=== PATIENT | male | born 1945 | race Caucasian/White ===

== ENCOUNTER 2020-06-22 14:00 | Outpatient (REF) | payer MEDICARE, OTHER, SELFPAY | END 2020-06-22 14:01 | disposition home or self-care (01) | LOC: HO.BBR 14:00 | PROVIDERS: PCP Internal Medicine; Visit Provider Internal Medicine Hematology | DX: Z13.89 Encounter for screening for other disorder (principal) ==

== ENCOUNTER 2020-06-29 14:08 | Outpatient (REF) | payer MEDICARE, OTHER, SELFPAY | END 2020-06-29 14:09 | disposition home or self-care (01) | LOC: HO.BBR 14:08 | PROVIDERS: PCP Internal Medicine; Visit Provider Internal Medicine Hematology | DX: Z13.89 Encounter for screening for other disorder (principal) ==

== ENCOUNTER 2020-07-13 13:02 | Outpatient (REF) | payer MEDICARE, OTHER, SELFPAY | END 2020-07-13 13:03 | disposition home or self-care (01) | LOC: HO.BBR 13:02 | PROVIDERS: Visit Provider Internal Medicine Hematology | DX: Z13.89 Encounter for screening for other disorder (principal) ==

== ENCOUNTER 2020-07-27 13:47 | Outpatient (REF) | payer MEDICARE, OTHER, SELFPAY | END 2020-07-27 13:48 | disposition home or self-care (01) | LOC: HO.BBR 13:47 | PROVIDERS: Visit Provider Internal Medicine Hematology | DX: Z13.89 Encounter for screening for other disorder (principal) ==

== ENCOUNTER 2020-08-10 13:34 | Outpatient (REF) | payer MEDICARE, OTHER, SELFPAY | END 2020-08-10 13:35 | disposition home or self-care (01) | LOC: HO.BBR 13:34 | PROVIDERS: Visit Provider Internal Medicine Hematology | DX: Z13.89 Encounter for screening for other disorder (principal) ==

== ENCOUNTER 2020-08-24 13:40 | Outpatient (REF) | payer MEDICARE, OTHER, SELFPAY | END 2020-08-24 13:41 | disposition home or self-care (01) | LOC: HO.BBR 13:40 | PROVIDERS: Visit Provider Internal Medicine Hematology | DX: Z13.89 Encounter for screening for other disorder (principal) ==

== ENCOUNTER 2020-09-07 13:44 | Outpatient (REF) | payer MEDICARE, OTHER, SELFPAY | END 2020-09-07 13:45 | disposition home or self-care (01) | LOC: HO.BBR 13:44 | PROVIDERS: PCP Internal Medicine; Visit Provider Internal Medicine Hematology | DX: Z13.89 Encounter for screening for other disorder (principal) ==

== ENCOUNTER 2020-09-23 13:43 | Outpatient (REF) | payer MEDICARE, OTHER, SELFPAY | END 2020-09-23 13:44 | disposition home or self-care (01) | LOC: HO.BBR 13:43 | PROVIDERS: Visit Provider Internal Medicine Hematology | DX: Z13.89 Encounter for screening for other disorder (principal) ==

== ENCOUNTER 2020-10-25 13:37 | Outpatient (REF) | payer MEDICARE, OTHER, SELFPAY | END 2020-10-25 13:38 | disposition home or self-care (01) | LOC: HO.BBR 13:37 | PROVIDERS: PCP Internal Medicine; Visit Provider Internal Medicine Hematology | DX: Z13.89 Encounter for screening for other disorder (principal) ==

== ENCOUNTER 2020-11-25 13:07 | Outpatient (REF) | payer MEDICARE, OTHER, SELFPAY | END 2020-11-25 13:08 | disposition home or self-care (01) | LOC: HO.BBR 13:07 | PROVIDERS: Visit Provider Internal Medicine Hematology | DX: Z13.89 Encounter for screening for other disorder (principal) ==

== ENCOUNTER 2020-12-17 12:09 | Outpatient (REF) | payer MEDICARE, OTHER, SELFPAY | END 2020-12-17 12:10 | disposition home or self-care (01) | LOC: HO.BBR 12:09 | PROVIDERS: Visit Provider Internal Medicine Hematology | DX: Z13.89 Encounter for screening for other disorder (principal) ==

== ENCOUNTER 2021-01-24 13:11 | Outpatient (REF) | payer MEDICARE, OTHER, SELFPAY | END 2021-01-24 13:12 | disposition home or self-care (01) | LOC: HO.BBR 13:11 | PROVIDERS: Visit Provider Internal Medicine Hematology | DX: Z13.89 Encounter for screening for other disorder (principal) ==

== ENCOUNTER 2021-02-28 13:04 | Outpatient (REF) | payer MEDICARE, OTHER, SELFPAY | END 2021-02-28 13:05 | disposition home or self-care (01) | LOC: HO.BBR 13:04 | PROVIDERS: Visit Provider Internal Medicine Hematology | DX: Z13.89 Encounter for screening for other disorder (principal) ==

== ENCOUNTER 2021-06-02 12:11 | Outpatient (REF) | payer MEDICARE, OTHER, SELFPAY | END 2021-06-02 12:12 | disposition home or self-care (01) | LOC: HO.BBR 12:11 | PROVIDERS: Visit Provider Internal Medicine Hematology | DX: Z13.89 Encounter for screening for other disorder (principal) ==

== ENCOUNTER → 2021-06-15 11:00 | Outpatient (BNVA) | payer MEDICARE, OTHER, SELFPAY | PROVIDERS: PCP Internal Medicine; Visit Provider Psychiatry & Neurology Neurology | DX: G43.709 Chronic migraine without aura, not intractable, without status migrainosus (principal); G24.3 Spasmodic torticollis; M54.2 Cervicalgia | CPT/HCPCS: 99202 ==

== ENCOUNTER → 2021-07-14 11:33 | Outpatient (BNVA) | payer MEDICARE, OTHER, SELFPAY | PROVIDERS: PCP Internal Medicine; Visit Provider Psychiatry & Neurology Neurology | DX: G43.709 Chronic migraine without aura, not intractable, without status migrainosus (principal); G24.3 Spasmodic torticollis; M54.2 Cervicalgia | CPT/HCPCS: 64616; 99211; J0585 ==

== ENCOUNTER 2021-08-30 11:09 | Outpatient (REF) | payer MEDICARE, OTHER, SELFPAY | END 2021-08-30 11:10 | disposition home or self-care (01) | LOC: HO.BBR 11:09 | PROVIDERS: Visit Provider Internal Medicine Hematology | DX: Z13.89 Encounter for screening for other disorder (principal) ==

== ENCOUNTER → 2021-11-24 10:59 | Outpatient (BNVA) | payer MEDICARE, OTHER, SELFPAY | PROVIDERS: PCP Internal Medicine; Visit Provider Psychiatry & Neurology Neurology | DX: G43.709 Chronic migraine without aura, not intractable, without status migrainosus (principal); G24.3 Spasmodic torticollis; M54.2 Cervicalgia | CPT/HCPCS: 99212 ==

== ENCOUNTER 2021-11-30 12:12 | Outpatient (REF) | payer MEDICARE, OTHER, SELFPAY | END 2021-11-30 12:13 | disposition home or self-care (01) | LOC: HO.BBR 12:12 | PROVIDERS: Visit Provider Internal Medicine Hematology | DX: Z13.89 Encounter for screening for other disorder (principal) ==

== ENCOUNTER → 2022-02-10 11:25 | Outpatient (BNVA) | payer MEDICARE, OTHER, SELFPAY | PROVIDERS: PCP Internal Medicine; Visit Provider Psychiatry & Neurology Neurology | DX: G43.709 Chronic migraine without aura, not intractable, without status migrainosus (principal); G24.3 Spasmodic torticollis; M54.2 Cervicalgia | CPT/HCPCS: Q3014 ==

== ENCOUNTER 2022-03-02 10:56 | Outpatient (REF) | payer MEDICARE, OTHER, SELFPAY | END 2022-03-02 10:57 | disposition home or self-care (01) | LOC: HO.BBR 10:56 | PROVIDERS: PCP Internal Medicine; Visit Provider Internal Medicine Hematology | DX: Z13.89 Encounter for screening for other disorder (principal) ==

== ENCOUNTER → 2022-05-24 15:27 | Outpatient (BNVA) | payer MEDICARE, OTHER, SELFPAY | PROVIDERS: PCP Internal Medicine; Visit Provider Nurse Practitioner Family | DX: M54.2 Cervicalgia (principal); G24.3 Spasmodic torticollis; G43.709 Chronic migraine without aura, not intractable, without status migrainosus | CPT/HCPCS: 99212 ==

== ENCOUNTER 2022-06-30 12:56 | Outpatient (REF) | payer MEDICARE, OTHER, SELFPAY | END 2022-06-30 12:57 | disposition home or self-care (01) | LOC: HO.BBR 12:56 | PROVIDERS: Visit Provider Internal Medicine Hematology | DX: Z13.89 Encounter for screening for other disorder (principal) ==

== ENCOUNTER → 2022-08-30 11:27 | Outpatient (BNVA) | payer MEDICARE, OTHER, SELFPAY | PROVIDERS: PCP Internal Medicine; Visit Provider Nurse Practitioner Family | DX: G43.709 Chronic migraine without aura, not intractable, without status migrainosus (principal); G24.3 Spasmodic torticollis; M54.2 Cervicalgia | CPT/HCPCS: 99212 ==

== ENCOUNTER 2022-11-06 11:17 | Outpatient (REF) | payer MEDICARE, OTHER, SELFPAY | END 2022-11-06 11:18 | disposition home or self-care (01) | LOC: HO.BBR 11:17 | PROVIDERS: PCP Internal Medicine; Visit Provider Internal Medicine Hematology | DX: Z13.89 Encounter for screening for other disorder (principal) ==

== ENCOUNTER 2023-04-26 15:06 | Outpatient (AMB) | payer MEDICARE, OTHER, SELFPAY ==
--- NOTE | 2023-04-26 15:07 | A.OFFVIS_ITS ---
Intake Intake Visit Reasons: 3m follow up Headache-Confirmed Intake Note: patient following up for headaches. patients headaches are worst getting 2 a day Allergies ciprofloxacin [From Cipro] Allergy (Verified 04/26/23 15:08) Rash Sulfa (Sulfonamide Antibiotics) Allergy (Verified 04/26/23 15:08) Unknown Medication List - Last Reconciled 04/26/23 by Lianne Roberts, [facility] RESIDENT alfuzosin ER 10 mg PO DAILY alprazolam 0.25 mg PO BID PRN ascorbic acid (vitamin C) ER 500 mg PO DAILY atogepant 60 mg PO DAILY 30 days baclofen 1-2 tabs orally bedtime; calcium carbonate-vitamin D3 600 mg-10 mcg (400 unit) caps PO QID coenzyme Q10 (CoQ-10) 200 mg PO DAILY gabapentin 100 - 300 mg (1 - 3 x 100 mg) PO BEDTIME 30 days glutathione 10 mg PO meloxicam 7.5 mg PO DAILY methylcellulose (with sugar) (Citrucel (sucrose) oral powder) 1 tbsp PO DAILY omeprazole 40 mg PO DAILY 30 days oxycodone 5 mg PO BEDTIME PRN prednisone 6 tabs x's 3 days, 5 tabs x's 2 days, then 4 tabs x's 2 days, 3 tabs x's 2 tabs, 2 tabs x's 2 days, 1 tab x's 2 days then stop orally daily; rivaroxaban (Xarelto) 10 mg PO DAILY simvastatin 10 mg PO BEDTIME sumatriptan succinate 1 tab at onset of headache and may repeat in 2 hrs orally ; PRN; 30 days MDD 2 tabs verapamil ER 200 mg PO DAILY whey grams PO zinc 50 mg PO DAILY HPI HPI Comments History of Present Illness Details 78-yr-old male presents for f/u telephon e visit. Pt denies any significant interval medical changes. Pt has been having increased migraine intensity and frequency. Now having a daily migraine, needing to take Sumatripatn 1-2 x's per day. Feels a good day is where he only needs to take 1 Sumatriptan a day. Sometimes uses Baclofen at bedtime- does not think it helps much. Pt stopped Qulipta 60mg- did not feel it was helping fully. Tried Nerivio- Did not find much benefit from acute or preventive tx. Tried a Ubrelvy sample he had on hand- this did help, as he did not wake up in the morning w/ the headache.. [facility] Medical History Arthritis Back pain Chronic migraine without aura Hyperlipidemia Osteoporosis Sleep disorder Surgical History Hx of shoulder surgery History of bowel resection Hx of splenectomy Hx of knee surgery Family History Father Cancer Mother Cancer Son Migraine Daughter Migraine Sister Pancreatic cancer Social History Household Members: Spouse Alcohol intake: former Patient Tobacco Use Status: Never used Tobacco Current occupational status: retired Physical Exam Const General: cooperative and no acute distress Orientation/consciousness: patient oriented x3 Resp Effort & Inspection: normal respiratory effort and able to speak in complete sentences Neuro General: patient oriented x3 Cognition (Neuro): normal cognition Psych Mental Status: mental status grossly normal Speech and movement: Clear speech present Attitude: cooperative Assessment & Plan Assessment & Plan (1) Chronic migraine without aura: Code(s): G43.709 - Chronic migraine without aura, not intractable, without status migrainosus (2) Spasmodic torticollis: Code(s): G24.3 - Spasmodic torticollis (3) Cervicalgia: Code(s): M54.2 - Cervicalgia Plan For migraine prevention: Start riboflavin 400 mg q.a.m. Start magnesium 400 mg q.h.s. Start Vyepti 100mg IV q 3 months. Continue Verapamil Er 200mg qd. Patient has stopped Atogepant 60mg qhs. Continue PT exercises. Previous preventive medication trials: Emgality, atogepant 60 mg, topiramate, depakote, gabapentin, magnesium, amitriptyline , nortriptyline, nurtec , Aimovig, and botox?for prohylaxis- all ineffective For acute medication treatment: Trial Ubrelvy 100 mg as needed at onset of headache, may repeat in 2 hours Continue Sumatriptan prn- losing effectiveness. Previous acute treatment trials: Naratriptan- not full effect. Nerivio- ineffective Future considerations- In-lab PSG to assess for sleep apnea and PLMS. f/u in 4 months or sooner prn. Medications: New ubrogepant (Ubrelvy) take at onset of migraine, may repeat in 2hrs 50 - 100 mg (0.5 - 1 x 100 mg) PO ONCE PRN 16 tabs 3RF migraine headache 30 days eptinezumab-jjmr (Vyepti) administer over 30 mins 100 mg IV [id number] 1 day riboflavin (vitamin B2) 400 mg PO DAILY 30 tabs 6RF 30 days magnesium oxide may hold for loose stools 400 mg PO BEDTIME 30 tabs 6RF 30 days Discontinued atogepant Discontinued Reason: Doctor's Order 60 mg PO DAILY 30 days 30 tabs 6RF Telehealth Telehealth Location of provider rendering services: practice address Location of patient: address on file Patient Identification confirmed using: Name, : Yes Telehealth method: video Patient verbally consented to treatment: Yes Patient verbally consented to billing insurance company: Yes Patient informed of any privacy concerns related to visit: Yes Minutes spent on Phone/Video with Pt.: 25 Coding Level of Care Code Tele Est Pt Level 4 (67446) Diagnoses Chronic migraine without aura G43.709 Spasmodic torticollis G24.3 Cervicalgia M54.2
== END 2023-04-26 17:00 | disposition home or self-care (01) ==
LOC: HO.HSMS 15:07
PROVIDERS: PCP Internal Medicine; Visit Provider Nurse Practitioner Family
DX: G43.709 Chronic migraine without aura, not intractable, without status migrainosus (principal); G24.3 Spasmodic torticollis; M54.2 Cervicalgia
CPT/HCPCS: 99214

== ENCOUNTER → 2023-04-26 15:06 | Outpatient (BNVA) | payer MEDICARE, OTHER, SELFPAY | PROVIDERS: PCP Internal Medicine; Visit Provider Nurse Practitioner Family | DX: M54.2 Cervicalgia (principal); G24.3 Spasmodic torticollis; G43.709 Chronic migraine without aura, not intractable, without status migrainosus ==

== ENCOUNTER 2023-07-31 11:08 | Outpatient (AMB) | payer MEDICARE, OTHER, SELFPAY ==
--- NOTE | 2023-07-31 11:12 | A.OFFVIS_ITS ---
Vital Signs 07/31/23 11:14 Height 5 ft 6 in Weight 168 lb 8 oz BMI 27.2 BP 112/74 Blood Pressure Location Rt brachial Position Sitting Pulse 68 Pulse Source Pulse Oximeter Pulse Oximetry (%) 96 Oxygen Delivery Method Room Air Intake Visit Reasons: Follow up Headache-CONF Intake Note: Patient presents for follow up for headache. Patient concerns of continued migraines also wants results from his t scan done 10 day ago. Allergies nitrofurantoin [From Macrobid] Allergy (Mild, Verified 07/31/23 11:21) Nausea ciprofloxacin [From Cipro] Allergy (Verified 07/31/23 11:20) Rash Sulfa (Sulfonamide Antibiotics) Allergy (Verified 07/31/23 11:20) Unknown Medication List - Last Reconciled 08/04/23 by MICHAEL Fernandez alfuzosin ER 10 mg PO DAILY alprazolam 0.25 mg PO BID PRN ascorbic acid (vitamin C) ER 500 mg PO DAILY baclofen 1-2 tabs orally bedtime; calcium carbonate-vitamin D3 600 mg-10 mcg (400 unit) caps PO QID coenzyme Q10 (CoQ-10) 200 mg PO DAILY eptinezumab-jjmr (Vyepti) 100 mg IV [id number] 1 day gabapentin 100 - 300 mg (1 - 3 x 100 mg) PO BEDTIME 30 days glutathione 10 mg PO magnesium oxide 400 mg PO BEDTIME 30 days meloxicam 7.5 mg PO DAILY methylcellulose (with sugar) (Citrucel (sucrose) oral powder) 1 tbsp PO DAILY omeprazole 40 mg PO DAILY 30 days oxycodone 5 mg PO BEDTIME PRN prednisone 6 tabs x's 3 days, 5 tabs x's 2 days, then 4 tabs x's 2 days, 3 tabs x's 2 tabs, 2 tabs x's 2 days, 1 tab x's 2 days then stop orally daily; riboflavin (vitamin B2) 400 mg PO DAILY 30 days rivaroxaban (Xarelto) 5 mg PO DAILY simvastatin 10 mg PO BEDTIME sumatriptan succinate 1 tab at onset of headache and may repeat in 2 hrs orally ; PRN; 30 days MDD 2 tabs ubrogepant (Ubrelvy) 50 - 100 mg (0.5 - 1 x 100 mg) PO ONCE PRN 30 days verapamil ER 200 mg PO DAILY whey grams PO zinc 50 mg PO DAILY HPI Comments Details: 78-yr-old male presents for f/u visit, accompanied by his . Since the last visit, pt has been having increasing right sided temporal steady intense stabbing headache- makes him stop and lay down. This headache is always triggered by bending over and getting back up. This subsides if he lays down for 5 minute, but once lasted 45 minutes. These started 8-10 yrs ago, but recently are more frequent. This is entirely different than his usual left sided migraine attacks. Thus, we advised pt to have Brain MRI w/wo which showed no acute findings, with mild progression of nonspeciifc mild T2/FLAIR hyperintense foci in the white matter, likely chronic small vessel disease. Head/NCTA showed Bilateral intracranial ICAs demonstrate atherosclerotic calcification w/o stenosis. No acute intracranial large vessel occlusion or high-grade intracranial stenosis. No hemodynamically-significant stenoses of the extracranial internal carotid and vertebral arteries. However, there is mild beading of the V3 segment of the left vertebral artery, which may be due to fibromuscular dysplasia. Chronic left cerebellar infarct. Pt denies known h/o stroke or TIA. Once had an atypical episode of AMS but states had no residual s/s. He has been on Verapamil ER for at least 15 yrs for migraine prevention- initially on 240mg TID, and then reduced to 200mg ER qd. He is not sure if this dose change impacted severity of stabbing headache. His BP is normotensive. Last lipids were WNL. 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 More recently using Sumatriptan 1/2 tab bid for acute/prevention of typical left sided migraine. The Vyepti order has been apporved but is still being processed by speciality pharmacy and infusion clinic. Pt does reports bouts of RLE sciatica. He has done PT, which has helped, but s/s did return. F/B PS&S. He has an upcoming neurosurgery consult w/ Dr Ryder. [facility] Medical History (Updated 08/04/23 @ 14:44 by MICHAEL Fernandez) Prothrombin gene mutation Chronic migraine without aura Back pain Arthritis Sleep disorder Osteoporosis Hyperlipidemia Surgical History Hx of shoulder surgery History of bowel resection Hx of splenectomy Hx of knee surgery Family History Father Cancer Mother Cancer Son Migraine Daughter Migraine Sister Pancreatic cancer Social History Household Members: Spouse Alcohol intake: former Patient Tobacco Use Status: Never used Tobacco Current occupational status: retired Physical Exam Vital Signs: Last Vital Signs Pulse 68 07/31/23 11:14 BP 112/74 07/31/23 11:14 Pulse Ox 96 07/31/23 11:14 Oxygen Delivery Method Room Air 07/31/23 11:14 BMI result Body Mass Index 27.2 Const General: cooperative and no acute distress Orientation/consciousness: patient oriented x3 Resp Effort & Inspection: normal respiratory effort and able to speak in complete sentences Neuro General: patient oriented x3 Cranial nerves: Yes CN's II-XII intact bilaterally Cognition (Neuro): normal cognition Psych Appearance: grossly normal Mental Status: mental status grossly normal Speech and movement: Normal speech and movement present Affect: normal affect Attitude: cooperative Results Reviewed Results Reviewed: 08/22/22 15:58 Cholesterol 147 Triglycerides 95 HDL Cholesterol 55 LDL Cholesterol 73 Non HDL Cholesterol 92 07/02/2023, MRI Brain W+W/O Contrast MRI Brain W+W/O Contrast INDICATION / CLINICAL QUESTION: Reason: R51.9 D68.52 E78.5 G43.709 HEADACHE UNSP. PROTHROMBIN GENE MUTATION HYPERLIPIDEMIA UNSP. CHRONIC MIGRAINE W O AURA NOT INTRACTABLE W O STATUS; Clinical Question(s): Other: Other: TECHNIQUE: MRI of the brain was performed with and without c ontrast utilizing sagittal and axial T1, axial T2, axial FLAIR, axial MPGR, and axial DWI sequences, and post-contrast 3D T1 ELLIOTT with multiplanar reformats. 15 mL of Clariscan was administered intravenously. COMPARISON: MRI of 04/27/2020 FINDINGS: BRAIN and EXTRA-AXIAL SPACES: The midline structures, including sella, corpus callosum, and craniocervical junction, are unremarkable. There is no mass effect, midline shift, or effacement of the basal cisterns. On diffusion weighted imaging, there are no regions of restricted diffusion to indicate an acute or subacute infarct. There is no evidence of intracranial hemorrhage on susceptibility sensitive sequence. Mild scattered foci of T2 prolongation are seen in the white matter, mildly progressed since the prior examination. Ventricles, cisterns, and sulci are normal in size and configuration, without hydrocephalus. No abnormal extra-axial fluid collections are seen. Meningeal surfaces are normal. No abnormal intracranial enhancement is seen. Major intracranial flow voids are present. EXTRACRANIAL SOFT TISSUES: Orbits are unremarkable. Mucous retention cysts or polyps are noted in the left maxillary sinus, improved since the prior examination. The previously seen concentric mucosal thickening of the right maxillary sinusitis resolved.. Otherwise the paranasal sinuses are mastoid air cells are clear. BONES: Marrow signal is pres erved. IMPRESSION: 1. No acute/subacute infarct, mass, hemorrhage, abnormal enhancement, or other acute intracranial abnormality. 2. Mildly progressed mild T2/FLAIR hyperintense foci in the white matter, nonspecific but most likely reflecting chronic small vessel disease. 07/19/2023, CT Angio Head, CT Angio Neck COMPARISON: MRI of the brain 07/02/2023 FINDINGS: CTA OF THE NECK: Arch: There is a four vessel aortic arch, with direct origin of the left vertebral artery from the aorta. There is mild atherosclerotic plaque of the aortic arch, but origins of the supra aortic vessels are patent. Right carotid system: The common carotid and cervical internal carotid arteries are patent. There is calcified atherosclerotic plaque at the carotid bifurcation, but no ICA stenosis (0%) by NASCET criteria. Left carotid system: The common carotid and cervical internal carotid arteries are patent. There is calcified atherosclerotic plaque at the carotid bifurcation, but no ICA stenosis (0%) by NASCET criteria. There is a left-dominant vertebral artery system. Right vertebral: Patent. Left vertebral: Patent. There is mild beading of the V3 segment of the left vertebral artery. Other: Soft tissues and bones: No evidence of lymphadenopathy or mass. Subcentimeter thyroid nodularity, not requiring follow-up given the small size. Visualized lungs are blurred by motion artifact, without significant superimposed airspace opacity. Multilevel degenerative changes of the cervical spine. Fusion of the right C2-C3 facet joint. CTA OF THE HEAD: Anterior circulation: Bilateral intracranial ICAs demonstrate atherosclerotic calcification, without stenosis. Bilateral LAURI and MCA branches are patent. There is no significant stenosis, proximal cutoff, aneurysm, or vascular malformation. Posterior circulation: Bilateral intracranial vertebral arteries, the basilar artery, and bilateral superior cerebellar and posterior cerebral artery branches are patent. Posterior com municating arteries are present. Veins: Major dural venous sinuses are patent. Other: Soft tissues and bones: A chronic left cerebellar infarct is noted. Orbits are unremarkable. No acute bony abnormality. IMPRESSION: 1. No acute intracranial large vessel occlusion or high-grade intracranial stenosis. 2. No hemodynamically-significant stenoses of the extracranial internal carotid and vertebral arteries. 3. Chronic left cerebellar infarct. ADDENDUM: CT Angio Head Addendum: Mild beading of the V3 segment of the left vertebral artery described in the body report may be due to fibromuscular dysplasia. 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 Likely chronic small vessel disease, however could alos be d/t migraine vasculopathy. Head/Neck CTA: Bilateral intracranial ICAs demonstrate atherosclerotic calcification w/o stenosis. Mild beading of the V3 segment of the left vertebral artery, suggested to be due to fibromuscular dysplasia. Chronic left cerebellar infarct. For chronic left cerebellar infarct: Pt denies known h/o stroke. Pt is normotensive. Lipids- WNL. Will check labs. Continue Xarelto, Simvastatin. For mild left extracranial vertebral artery beading noted on work-up of worsening stabbing headache: We have no comparison to know if the vertebral artery beading is chronic or reversible. Will request endovascular evaluation- ? fibromuscular dysplasia, ? RCVS- there are rare case reports of symptomatic extracranial arterial beading. Continue Verapamil ER 200mg po qd for now. Consider switching Verapamil to Nifedipine in hopes this would be more effective for stabbing headache pain. For migraine prevention: Riboflavin 400 mg q.a.m. Magnesium 400 mg q.h.s. Start Vyepti 100mg IV q 3 months- approved, pending scheduling. Continue Verapamil Er 200mg qd. Continue PT exercises. Previous preventive medication trials: Emgality, atogepant 60 mg, topiramate, depakote, gabapentin, magnesium, amitriptyline , nortriptyline, nurtec , Aimovig, Atogepant, botox, and Nerivio neuromodulation device?for prohylaxis- all ineffective ? For acute medication treatment: Start Ubrelvy 100 mg as needed at onset of headache, may repeat in 2 hours- will f/u on prio auth status Continue Sumatriptan prn- losing effectiveness- goal is to reduce Sumatriptan use to < 3 x's per week. Previous acute treatment trials: Naratriptan- not fully effective. Nerivio- ineffective. Ubrelvy smaple- effective ? Future considerations- In-lab PSG to assess for sleep apnea and PLMS. Orders: Orders Erythrocyte Sedimentation Rate 07/31/23 D68.52 - Prothrombin gene mutation, I77.3 - Arterial fibromuscular dysplasia, M19.90 - Unspecified osteoarthritis, unspecified site Comprehensive Met. Panel 07/31/23 D68.52 - Prothrombin gene mutation, I77.3 - Arterial fibromuscular dysplasia, M19.90 - Unspecified osteoarthritis, un specified site Rheumatoid Factor 07/31/23 D68.52 - Prothrombin gene mutation, I77.3 - Arterial fibromuscular dysplasia, M19.90 - Unspecified osteoarthritis, unspecified site Complete Blood Count Auto Diff 07/31/23 D68.52 - Prothrombin gene mutation, I77.3 - Arterial fibromuscular dysplasia, M19.90 - Unspecified osteoarthritis, unspecified site Creatine Kinase Total 07/31/23 D68.52 - Prothrombin gene mutation, I77.3 - Arterial fibromuscular dysplasia, M19.90 - Unspecified osteoarthritis, unspecified site CRP High Sensitivity 07/31/23 D68.52 - Prothrombin gene mutation, I77.3 - Arterial fibromuscular dysplasia, M19.90 - Unspecified osteoarthritis, unspecified site JANE Reflex Titer and Pattern 07/31/23 D68.52 - Prothrombin gene mutation, I77.3 - Arterial fibromuscular dysplasia, M19.90 - Unspecified osteoarthritis, unspecified site Referrals Vascular Neurology Referral D68.52 - Prothrombin gene mutation, E83.110 - Hereditary hemochromatosis, G43.709 - Chronic migraine without aura, not intractable, without status migrainosus, G44.85 - Primary stabbing headache, R93.89 - Abnormal findings on diagnostic imaging of other specified body structures, Z86.73 - Personal history of transient ischemic attack (TIA), and cerebral infarction without residual deficits Medications: Refilled ubrogepant (Ubrelvy) take at onset of migraine, may repeat in 2hrs 50 - 100 mg (0.5 - 1 x 100 mg) PO ONCE 30 days PRN 16 tabs 3RF migraine headache Coding Level of Care Code Est Pt Level 4 (76048) Complex EM visit Add On G2211 Diagnoses Stabbing headache G44.85 Hereditary hemochromatosis E83.110 Chronic migraine without aura G43.709 Prothrombin [id number] mutation D68.52 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
[2023-07-31 11:14] VITALS: BP 112/74; PULSE 68; O2SAT 96; BMI 27.2
== END 2023-07-31 12:13 | disposition home or self-care (01) ==
PROVIDERS: PCP Internal Medicine; Visit Provider Nurse Practitioner Family
DX: G44.85 Primary stabbing headache (principal); E83.110 Hereditary hemochromatosis; G43.709 Chronic migraine without aura, not intractable, without status migrainosus; D68.52 Prothrombin gene mutation; Z86.73 Personal history of transient ischemic attack (TIA), and cerebral infarction without residual deficits; R93.89 Abnormal findings on diagnostic imaging of other specified body structures
CPT/HCPCS: 99214; G2211

== ENCOUNTER 2023-07-31 12:26 | Outpatient (REF) | payer MEDICARE, OTHER, SELFPAY ==
[2023-07-31 18:27] LABS: Rheumatoid Factor < 13.0 IU/mL (<15.0)
[2023-07-31 18:34] LABS: Alanine Aminotransferase 15 U/L (0-40); Albumin Level 4.2 g/dL (3.5-5.0); Alkaline Phosphatase 88 U/L (39-117); Anion Gap 11 (12-20); Aspartate Amino Transferase 20 U/L (5-37); Blood Urea Nitrogen 21 mg/dL (9-16); Calcium 9.7 mg/dL (8.4-10.2); Carbon Dioxide 26 mmol/L (22-29); Chloride 110 mmol/L (96-108); Estimated Glomerular Filt Rate > 60; Glucose Random 98 mg/dL (60-115); Potassium 4.2 mmol/L (3.3-5.1); Sodium 143 mmol/L (135-145); Total Protein 6.8 g/dL (6.5-8.0)
[2023-07-31 19:19] LABS: Erythrocyte Sedimentation Rate 2 MM/HR (0-15)
[2023-07-31 19:36] LABS: Basophils Percent Auto 0.4 % (0-2); Eosinophils Absolute Auto 0.1 X10*3/uL (0.0-0.4); Eosinophils Percent Auto 1.4 % (0-4); Hematocrit 44.6 % (42.0-52.0); Hemoglobin 14.7 g/dl (14.0-18.0); Imm Gran Abs Auto 0.01 X10*3/uL (0.00-0.03); Imm Gran Pct Auto 0.1 % (0.0-0.4); Lymphocytes Absolute Auto 1.8 X10*3/uL (1.2-4.9); MANUAL DIFF FLAG SCAN; Monocytes Absolute Auto 0.9 X10*3/uL (0.1-1.2); Monocytes Percent Auto 12.1 % (2-11); Neutrophils Absolute Auto 4.5 x10*3/uL (2.0-8.3); PLT CLUMP 1; Red Blood Count 5.07 X10*6/uL (4.60-5.80); SCAN SMEAR FLAG 1
[2023-07-31 19:41] LABS: Platelet Count 133 X10*3/uL (160-400); SLIDE REVIEW VERIFIED; White Blood Count 7.3 X10*3/uL (4.8-10.8)
[2023-08-01 18:54] LABS: CRP High Sensitivity <0.2 mg/L
[2023-08-02 15:09] LABS: Anti Nuclear Antibody Screen NEGATIVE (NEGATIVE)
== END 2023-07-31 12:27 | disposition home or self-care (01) ==
LOC: HO.HKASLDS 12:26
PROVIDERS: Visit Provider Nurse Practitioner Family
DX: D68.52 Prothrombin gene mutation (principal); M19.90 Unspecified osteoarthritis, unspecified site; I77.3 Arterial fibromuscular dysplasia
CPT/HCPCS: 36415; 80053; 82550; 85025; 85652; 86038; 86141; 86431; 99212

== ENCOUNTER 2023-10-04 08:30 | Outpatient (AMB) | payer MEDICARE, OTHER, SELFPAY ==
--- NOTE | 2023-10-04 08:39 | A.OFFVIS_ITS ---
Vital Signs 10/04/23 08:42 Height 5 ft 6 in Weight 166 lb BMI 26.8 BP 110/74 Blood Pressure Location Rt brachial Position Sitting Intake Visit Reasons: 3 month F/U Intake Note: Patient presents for follow up. patient had a viepti infusion in july. Allergies nitrofurantoin [From Macrobid] Allergy (Mild, Verified 10/04/23 08:43) Nausea ciprofloxacin [From Cipro] Allergy (Verified 10/04/23 08:43) Rash Sulfa (Sulfonamide Antibiotics) Allergy (Verified 10/04/23 08:43) Unknown Medication List - Last Reconciled 10/04/23 by Lianne Roberts, MICHAEL alfuzosin ER 10 mg PO DAILY alprazolam 0.25 mg PO BID PRN ascorbic acid (vitamin C) ER 500 mg PO DAILY baclofen 1-2 tabs orally bedtime; calcium carbonate-vitamin D3 600 mg-10 mcg (400 unit) caps PO QID coenzyme Q10 (CoQ-10) 200 mg PO DAILY eptinezumab-jjmr (Vyepti) 100 mg IV [id number] 1 day gabapentin 100 - 300 mg (1 - 3 x 100 mg) PO BEDTIME 30 days glutathione 10 mg PO magnesium oxide 400 mg PO BEDTIME 30 days meloxicam 7.5 mg PO DAILY methylcellulose (with sugar) (Citrucel (sucrose) oral powder) 1 tbsp PO DAILY mirtazapine 7.5 mg PO BEDTIME 30 days omeprazole 40 mg PO DAILY 30 days oxycodone 5 mg PO BEDTIME PRN prednisone 6 tabs x's 3 days, 5 tabs x's 2 days, then 4 tabs x's 2 days, 3 tabs x's 2 tabs, 2 tabs x's 2 days, 1 tab x's 2 days then stop orally daily; riboflavin (vitamin B2) 400 mg PO DAILY 30 days rivaroxaban (Xarelto) 5 mg PO DAILY simvastatin 10 mg PO BEDTIME sumatriptan succinate 1 tab at onset of headache and may repeat in 2 hrs orally ; PRN; 30 days MDD 2 tabs ubrogepant (Ubrelvy) 50 - 100 mg (0.5 - 1 x 100 mg) PO ONCE PRN 30 days verapamil ER 200 mg PO DAILY whey grams PO zinc 50 mg PO DAILY HPI Comments Details: 78-yr-old male presents for f/u visit. Pt denies any significant interval medical changes. Pt states he has an appt for 2nd opinion at [facility] neurology w/ Dr Ruff, however we had requested endoneurovascular consult. Pt reports he tolerated the Vyepti, but has not noticed any benefit. He is still having daily migraine- needing to take the Sumatriptan 1/2-1 tab daily-BID. He feels the Ubrelvy was not effective. He is not having as much stabbing headache- though is trying to minimize bending over. Baseline migraine headache characteristics: Left-sided, starts in left spiritism grows into a horseshoe shape over left ear and into the left neck. The pain is dull but very intense. A/w phonophobia, has had vomiting, malaise, fatigued, lethargy (like he cannot get up to get his medication), activity intolerance. Occasionally has had a 15-20 minute visual aura not a/w headache- last attack was 6 weeks ago. Baseline stabbing headaches: Right-sided sudden onset stabbing headache a/w making him lay down, which lasts 5-30 minutes.Triggered by bending over and standing back up. [facility] Medical History (Updated 08/04/23 @ 14:44 by MICHAEL Fernandez) Prothrombin gene mutation Chronic migraine without aura Back pain Arthritis Sleep disorder Osteoporosis Hyperlipidemia Surgical History Hx of shoulder surgery History of bowel resection Hx of splenectomy Hx of knee surgery Family History Father Cancer Mother Cancer Son Migraine Daughter Migraine Sister Pancreatic cancer Social History Household Members: Spouse Alcohol intake: former Patient Tobacco Use Status: Never used Tobacco Current occupational status: retired Physical Exam Vital Signs: Last Vital Signs BP 110/74 10/04/23 08:42 BMI result Body Mass Index 26.8 Const General: cooperative and no acute distress Orientation/consciousness: patient oriented x3 Resp Effort & Inspection: normal respiratory effort and able to speak in complete sentences Neuro General: patient oriented x3 Cranial nerves: Yes CN's II-XII intact bilaterally Cognition (Neuro): normal cognition Psych Appearance: grossly normal Mental Status: mental status grossly normal Speech and movement: Normal speech and movement present Affect: normal affect Attitude: cooperative Assessment & Plan Assessment & Plan (1) Chronic migraine without aura: Code(s): G43.709 - Chronic migraine without aura, not intractable, without status migrainosus Category: Medical (2) Stabbing headache: Code(s): G44.85 - Primary stabbing headache Category: Medical (3) Abnormal computed tomography angiography (CTA): Code(s): R93.89 - Abnormal findings on diagnostic imaging of other specified body structures Category: Medical Plan Recent head imaging results, notable for: Brain MRI w/wo- mild progression of nonspeciifc mild T2/FLAIR hyperintense foci in the white matter. Likely chronic small vessel disease, however could also be d/t migraine vasculopathy. Head/Neck CTA: Bilateral intracranial ICAs demonstrate atherosclerotic calcification w/o stenosis. Mild beading of the V3 segment of the left vertebral artery, suggested to be due to fibromuscular dysplasia. Chronic left cerebellar infarct. For chronic left cerebellar infarct: Pt denies known h/o stroke. Pt is normotensive. Lipids- WNL. 07/2023- CBC, CMP, ESR, CRP, JANE, RF- WNL. Continue Xarelto, Simvastatin. ? For mild left extracranial vertebral artery beading noted on work-up of worsening stabbing headache: We have no comparison to know if the vertebral artery beading is chronic or reversible. Will f/u on referral for neuroendovascular consult- ? fibromuscular dysplasia, ? RCVS- there are rare case reports of symptomatic extracranial arterial beading. Continue Verapamil ER 200mg po qd for now. Consider switching Verapamil to Nifedipine in hopes this would be more effective for stabbing headache pain. For stabbing headache: Increase melatonin from 10mg qhs prn to 20mg qhs. Treatment contraindications- Indometahcin trial d/t current Xarelto use. ? For migraine prevention: Riboflavin 400 mg q.a.m. Magnesium 400 mg q.h.s. Start Mirtazapine 7.5mg qhs. Increase Vyepti from 100mg to 300mg IV q 3 months- will check on prior auth stat. Continue Verapamil Er 200mg qd. Continue PT exercises. Referral for CBT-pain- such as [facility]. Previous preventive medication trials: Emgality, atogepant 60 mg, topiramate, depakote, gabapentin, magnesium, amitriptyline , nortriptyline, nurtec , Aimovig, Atogepant, botox, and Nerivio neuromodulation device?for prohylaxis- all ineffective. ? For acute medication treatment: Stop Ubrelvy 100 mg- ineffective. Continue Sumatriptan prn- discussed in detail consideration r/t Sumatriptan use in a pt with a h/o CV dz. Previous acute treatment trials: Naratriptan- not fully effective. Nerivio- ineffective. Ubrelvy 100 mg- ineffective. ? Future considerations- In-lab PSG to assess for sleep apnea and PLMS. Medications: New mirtazapine 7.5 mg PO BEDTIME 30 tabs 3RF 30 days Changed From eptinezumab-jjmr (Vyepti) administer over 30 mins 100 mg IV [id number] 1 day 0RF To eptinezumab-jjmr (Vyepti) administer over 30 mins 300 mg (3 mL) IV [id number] 1 day Coding Level of Care Code Est Pt Level 4 (37789) Diagnoses Chronic migraine without aura G43.709 Stabbing headache G44.85 Abnormal computed tomography angiography (CTA) R93.89
[2023-10-04 08:42] VITALS: BP 110/74; BMI 26.8
== END 2023-10-04 09:58 | disposition home or self-care (01) ==
PROVIDERS: PCP Internal Medicine; Visit Provider Nurse Practitioner Family
DX: G43.709 Chronic migraine without aura, not intractable, without status migrainosus (principal); G44.85 Primary stabbing headache; R93.89 Abnormal findings on diagnostic imaging of other specified body structures
CPT/HCPCS: 99214

== ENCOUNTER → 2023-10-04 08:30 | Outpatient (BNVA) | payer MEDICARE, OTHER, SELFPAY | PROVIDERS: PCP Internal Medicine; Visit Provider Nurse Practitioner Family | DX: G43.709 Chronic migraine without aura, not intractable, without status migrainosus (principal); G44.85 Primary stabbing headache; R93.89 Abnormal findings on diagnostic imaging of other specified body structures | CPT/HCPCS: 99212 ==

== ENCOUNTER 2023-11-12 11:45 | Outpatient (RCR) | payer MEDICARE, OTHER, SELFPAY ==
[2023-08-10 13:05] VITALS: BP 110/68; PULSE 78; RESP 16; TEMP 37.1; O2SAT 94
[2023-11-08 11:51] VITALS: BP 116/69; PULSE 70; RESP 18; TEMP 36.6
--- NOTE | 2023-11-08 12:21 | HO.INF ---
phone call received from [facility]. medication in pharmacy is vyepti 100mg. pt has a new order for vyepti 300mg and that medication was not delivered. per pharmacy, pt will have to be rescheduled. pt's prescriber office [facility] be notified. pt iv removed.
[2023-11-12 11:54] VITALS: BP 124/76; PULSE 71; RESP 16; TEMP 36.9; O2SAT 95
[2023-11-12] MEDS: 0.9 % Sodium Chloride Flush 10 ML SYRINGE 5 ML IVFLUSH ×2 (12:48→13:30)
--- NOTE | 2023-11-12 13:40 | HO.INF ---
patient declined all pre-meds. stated he didn't receive them prior to last dose and does not feel he needs them.
== END 2024-03-10 14:39 | disposition home or self-care (01) ==
LOC: HO.INF 11:45
PROVIDERS: Visit Provider Nurse Practitioner Family
DX: G43.709 Chronic migraine without aura, not intractable, without status migrainosus (principal)
CPT/HCPCS: 96365; J3032

== ENCOUNTER 2024-01-28 11:04 | Outpatient (AMB) | payer MEDICARE, OTHER, SELFPAY ==
--- NOTE | 2024-01-28 11:42 | MHC.OFFVIS ---
Vital Signs 01/28/24 11:43 Height 5 ft 6 in Weight 158 lb BMI 25.5 BP 115/70 Blood Pressure Location Rt brachial Position Sitting Pulse 71 Pulse Source Pulse Oximeter Pulse Oximetry (%) 97 Oxygen Delivery Method Room Air Intake Visit Reasons: Follow Up Rn Traveling Required: No Accompanied by: Self / Same As Patient Allergies nitrofurantoin [From Macrobid] Allergy (Mild, Verified 01/28/24 11:46) Nausea ciprofloxacin [From Cipro] Allergy (Verified 01/28/24 11:46) Rash Sulfa (Sulfonamide Antibiotics) Allergy (Verified 01/28/24 11:46) Unknown Do you need a note to return to daycare/school/sports/work: No HPI Comments Details: 78-yr-old male presents for f/u visit a chronic migraine. Pt reports he underwent a lumbar repair at [facility] in June 2023, which was helpful for lower back pain a short period. Thus, he went a f/u lumbar repair in early Dec also at [facility]. Patient reports he has not had a significant change in his migraine s/s. Pt reports he is having a typical left sided migraine at least once day. Has not had a right sided stabbing headache in a few months- is trying to minimize bending over to not trigger it. Yesterday, he did have a more general headache a/w spinning vertigo, which is better though he still feels a bit woozy today. Denies fever, ear pain, throat pain. Review of interval medication tx's: In Sep, he had 2nd Vyepti at increased dose of 300mg- he does not feel it was helpful. He is unsure if he took the Mirtazapine. He still compliant w/ Verapamil 200mg qhs- headaches have seemed worse when tried lower dose. He is taking the Sumatriptan 1-1.5 tabs every day. May take 1/2 tab in the am- hoping it will work as a preventive tx but this does not seem to work well. Pt states in the past, Dr Brandt had tried to wean him off Sumatriptan, by decreasing the Sumatriptan daily dose by thirds, however, this was not effective. Baseline migraine headache characteristics: Left-sided, starts in left episcopalian grows into a horseshoe shape over left ear and into the left neck. The pain is dull but very intense. A/w phonophobia, has had vomiting, malaise, fatigued, lethargy (like he cannot get up to get his medication), activity intolerance. Occasionally has had a 15-20 minute visual aura not a/w headache- last attack was 6 weeks ago. Baseline stabbing headaches: Right-sided sudden onset stabbing headache a/w making him lay down, which lasts 5-30 minutes.Triggered by bending over and standing back up. PFSH Medical History Prothrombin gene mutation Chronic migraine without aura Back pain Arthritis Sleep disorder Osteoporosis Hyperlipidemia Surgical History Hx of shoulder surgery History of bowel resection Hx of splenectomy Hx of knee surgery Family History Father Cancer Mother Cancer Son Migraine Daughter Migraine Sister Pancreatic cancer Social History Household Members: Spouse Alcohol intake: former Patient Tobacco Use Status: Never used Tobacco Current occupational status: retired Physical Exam Vital Signs: Last Vital Signs Pulse 71 01/28/24 11:43 BP 115/70 01/28/24 11:43 Pulse Ox 97 01/28/24 11:43 Oxygen Delivery Method Room Air 01/28/24 11:43 BMI result Body Mass Index 25.5 Const General: cooperative and no acute distress Orientation/consciousness: patient oriented x3 Resp Effort & Inspection: normal respiratory effort and able to speak in complete sentences Neuro General: patient oriented x3 Cranial nerves: Yes CN's II-XII intact bilaterally Cognition (Neuro): normal cognition Psych Appearance: grossly normal Mental Status: mental status grossly normal Speech and movement: Normal speech and movement present Affect: normal affect Attitude: cooperative Assessment & Plan Assessment & Plan (1) Chronic migraine without aura: Code(s): G43.709 - Chronic migraine without aura, not intractable, without status migrainosus Category: Medical (2) Stabbing headache: Code(s): G44.85 - Primary stabbing headache Category: Medical (3) Abnormal computed tomography angiography (CTA): Code(s): R93.89 - Abnormal findings on diagnostic imaging of other specified body structures Category: Medical Plan For stabbing headache w/ positional trigger: Melatonin from 10-20mg qhs. Continue Verapamil ER 200mg po qd for now. Treatment contraindications- Indometahcin trial d/t current Xarelto use. Previous head imaging results, notable for: June 2023, Brain MRI w/wo- mild progression of nonspeciifc mild T2/FLAIR hyperintense foci in the white matter. Likely chronic small vessel disease, however could also be d/t migraine vasculopathy. June 2023, Head/Neck CTA: Bilateral intracranial ICAs demonstrate atherosclerotic calcification w/o stenosis. Mild beading of the V3 segment of the left vertebral artery, suggested to be due to fibromuscular dysplasia. Chronic left cerebellar infarct. For mild left extracranial vertebral artery beading noted on work-up of worsening stabbing headache: We have no comparison to know if the vertebral artery beading is chronic or reversible. Previously requested neuroendovascular consult at [facility]- ? fibromuscular dysplasia, ? RCVS- there are rare case reports of symptomatic extracranial arterial beading. For chronic left cerebellar infarct: Pt denies known h/o stroke. Pt is normotensive. Lipids- WNL. 07/2023- CBC, CMP, ESR, CRP, JANE, RF- WNL. Continue Xarelto, Simvastatin. ? ? For chronic migraine prevention: Riboflavin 400 mg q.a.m. Magnesium 400 mg q.h.s. Start Mirtazapine 7.5mg qhs. Continue Vyepti 300mg IV q 3 months. Continue Verapamil Er 200mg qd. Continue PT exercises. Discussed referal to migraine specific pain education/therapy program- such as ACT through [facility] or CBT through [facility]. Pt will consider- her would be more open to a program such as [facility]. Previous preventive medication trials: Emgality, atogepant 60 mg, topiramate, depakote, gabapentin, magnesium, amitriptyline , nortriptyline, nurtec , Aimovig, Atogepant, botox, and Nerivio neuromodulation device?for prohylaxis- all ineffective. ? For acute medication treatment: Had in-depth discussion regarding pt's current triptan use, including risk for medication adaptation headache and exacerbation of CV dz. Discussed that triptan use > 10 days per month may make him more prone to migraine attack and make his preventative therapies less effective. Discussed that there are tertiary headache centers that can admit pt's to wean them off of acute medications. However, we can safely wean pt off a triptan in the home setting and can minimize discomfort through implementing targeted bridge tx measures- including prednisone, metoclopramide, benadryl, acetaminophen, intranasal lidocaine. Would avoid opioids as well as NSAIDs. Pt states he is open to considering this, however he would like to wait until after his [facility] neuro appt in late Jan. Continue Sumatriptan prn- discussed in detail consideration r/t Sumatriptan use in a pt with a h/o CV dz. Previous acute treatment trials: Naratriptan- not fully effective. Nerivio- ineffective. Ubrelvy 100 mg- ineffective. ? Future considerations- In-lab PSG to assess for sleep apnea and PLMS. Coding Level of Care Code Est Pt Level 4 (89520) Diagnoses Chronic migraine without aura G43.709 Stabbing headache G44.85 Abnormal computed tomography angiography (CTA) R93.89
[2024-01-28 11:43] VITALS: BP 115/70; PULSE 71; O2SAT 97; BMI 25.5
== END 2024-01-28 12:39 | disposition home or self-care (01) ==
PROVIDERS: PCP Internal Medicine; Visit Provider Nurse Practitioner Family
DX: G43.709 Chronic migraine without aura, not intractable, without status migrainosus (principal); G44.85 Primary stabbing headache; R93.89 Abnormal findings on diagnostic imaging of other specified body structures
CPT/HCPCS: 99214

== ENCOUNTER → 2024-01-28 11:04 | Outpatient (BNVA) | payer MEDICARE, OTHER, SELFPAY | PROVIDERS: PCP Internal Medicine; Visit Provider Nurse Practitioner Family | DX: G43.709 Chronic migraine without aura, not intractable, without status migrainosus (principal); G44.85 Primary stabbing headache; R93.89 Abnormal findings on diagnostic imaging of other specified body structures | CPT/HCPCS: 99212 ==